=== PATIENT | female | born 1990 | race Hispanic/Latino ===

== ENCOUNTER 2020-11-11 19:26 | Emergency (ER) | payer OTHER ==
[2020-11-11 19:56] LABS: APPEARANCE,URINE CLOUDY (CLEAR); BILIRUBIN,URINE NEGATIVE (NEGATIVE); COLOR,URINE YELLOW (YELLOW); GLUCOSE, URINE (UA) NEGATIVE (NEGATIVE); KETONES,URINE NEGATIVE (NEGATIVE); LEUKOCYTE ESTERASE ,URINE NEGATIVE (NEGATIVE); NITRATE,URINE POSITIVE (NEGATIVE); OCCULT BLOOD,URINE LARGE (NEGATIVE); PROTEIN,URINE TRACE mg/dL (NEGATIVE)
[2020-11-11 20:02] LABS: RBC,URINE 51-100 /HPF (0-1)
[2020-11-11 20:03] LABS: BACTERIA,URINE Few /HPF (None Seen); SQUAMOUS EPITHELIAL CELL,UR Few /HPF (0-2)
[2020-11-11 20:47] LABS: BASOPHILS % (AUTO) 0.5 % (0.0-5.0); EOSINOPHILS % (AUTO) 0.2 % (0.0-8.0); HEMATOCRIT 35.8 % (36-48); LYMPHOCYTES % (AUTO) 22.2 % (21.0-51.0); MEAN CORPUSCULAR HEMOGLOBIN 28.8 pg (27.0-33.0); MEAN CORPUSCULAR HGB CONC 33.8 g/dL (32.0-36.0); MEAN CORPUSCULAR VOLUME 85.2 fL (79-99); MONOCYTES % (AUTO) 8.3 % (3.0-13.0); NEUTROPHILS % (AUTO) 68.5 % (40.0-77.0); PLATELET COUNT (AUTO) 343 K/uL (130-400); RED CELL DISTRIBUTION WIDTH 13.5 % (11.0-15.5); WHITE BLOOD COUNT (AUTO) 8.9 K/uL (4.8-10.8)
[2020-11-11 20:56] LABS: POTASSIUM 3.4 mmol/L (3.5-5.1)
[2020-11-11 21:15] LABS: BILIRUBIN,TOTAL 0.3 mg/dL (0.2-1.0); TOTAL PROTEIN, SERUM 8.3 g/dL (6.0-8.3)
== END 2020-11-11 22:19 | disposition home or self-care (01) ==
LOC: EDH 19:26
DX: O03.80 Unspecified complication following complete or unspecified spontaneous abortion (principal)
CPT/HCPCS: 36415; 80053; 81001; 81025; 84702; 85025; 87077; 87088; 87186

== ENCOUNTER → 2023-10-01 | Outpatient (CLI) | payer MEDICAID ==
[~2023-10-01] VITALS: Ht 172.7 cm; Wt 81.3 kg
[~2023-10-01] MED LIST: MVI PO
[2023-10-01 12:15] VITALS: BP 119/73; PULSE 69; RESP 18
[2023-10-01 12:17] LABS: BASOPHILS # (AUTO) 0.04 K/uL (0.00-0.20); BASOPHILS % (AUTO) 0.6 % (0.0-5.0); EOSINOPHILS # (AUTO) 0.02 K/uL (0.00-0.70); EOSINOPHILS % (AUTO) 0.3 % (0.0-8.0); HEMATOCRIT 37.5 % (36-48); IMMATURE GRANULOCYTE ABSOLUTE 0.01 K/uL (0-1); LYMPHOCYTES # (AUTO) 2.2 K/uL (1.0-4.8); LYMPHOCYTES % (AUTO) 34.2 % (21.0-51.0); MEAN CORPUSCULAR HEMOGLOBIN 26.8 pg (27.0-33.0); MEAN CORPUSCULAR VOLUME 83.9 fL (79-99); MONOCYTES # (AUTO) 0.4 K/uL (0.1-1.0); MONOCYTES % (AUTO) 6.1 % (3.0-13.0); NEUTROPHILS # (AUTO) 3.7 K/uL (1.8-7.7); NEUTROPHILS % (AUTO) 58.6 % (40.0-77.0); PLATELET COUNT (AUTO) 206 K/uL (130-400); RED BLOOD CELL COUNT(AUTO) 4.47 MIL/uL (4.00-5.50); RED CELL DISTRIBUTION WIDTH 14.1 % (11.0-15.5); WHITE BLOOD COUNT (AUTO) 6.3 K/uL (4.8-10.8)
[2023-10-01 12:38] LABS: INR <= 0.93 (0.85-1.15); PROTHROMBIN TIME 10.3 SEC (9.6-11.6)
[2023-10-01 12:41] LABS: CREATININE 0.8 mg/dL (0.5-1.0); POTASSIUM 3.6 mmol/L (3.5-5.1)
== END | disposition home or self-care (01) ==
LOC: DAH 10:00 → EDSTATUS 10-02 08:50
PROVIDERS: ATTEND Surgery
DX: K64.4 Residual hemorrhoidal skin tags (principal); Z79.01 Long term (current) use of anticoagulants; Z53.8 Procedure and treatment not carried out for other reasons
CPT/HCPCS: 80048; 84703; 85025; 85610; 85730; 36415; 93005; A6260

== ENCOUNTER 2024-03-19 06:13 | Day surgery (SDC) | payer MEDICAID ==
[2024-03-17 11:48] LABS: BASOPHILS # (AUTO) 0.03 K/uL (0.00-0.20); BASOPHILS % (AUTO) 0.5 % (0.0-5.0); EOSINOPHILS # (AUTO) 0.01 K/uL (0.00-0.70); EOSINOPHILS % (AUTO) 0.2 % (0.0-8.0); IMMATURE GRANULOCYTE ABSOLUTE 0.04 K/uL (0-1); LYMPHOCYTES # (AUTO) 2.2 K/uL (1.0-4.8); MEAN CORPUSCULAR HEMOGLOBIN 29.4 pg (27.0-33.0); MEAN CORPUSCULAR HGB CONC 33.3 g/dL (32.0-36.0); MEAN CORPUSCULAR VOLUME 88.2 fL (79-99); MONOCYTES # (AUTO) 0.5 K/uL (0.1-1.0); MONOCYTES % (AUTO) 8.1 % (3.0-13.0); NEUTROPHILS # (AUTO) 3.7 K/uL (1.8-7.7); NEUTROPHILS % (AUTO) 56.6 % (40.0-77.0); PLATELET COUNT (AUTO) 322 K/uL (130-400); RED BLOOD CELL COUNT(AUTO) 4.42 MIL/uL (4.00-5.50); RED CELL DISTRIBUTION WIDTH 13.6 % (11.0-15.5); WHITE BLOOD COUNT (AUTO) 6.6 K/uL (4.8-10.8)
[2024-03-17 11:50] VITALS: BP 137/81; PULSE 68; RESP 15; TEMP 98.2
[2024-03-17 11:58] LABS: INR 0.96 (0.85-1.15); PROTHROMBIN TIME 10.4 SEC (9.6-11.6)
[2024-03-17 11:59] LABS: PARTIAL THROMBOPLASTIN TIME 27.2 SEC (26.3-35.5)
[2024-03-17 12:03] LABS: ALBUMIN 4.2 g/dL (3.5-5.0); BILIRUBIN,TOTAL 0.7 mg/dL (0.2-1.0); CREATININE 0.9 mg/dL (0.5-1.0); POTASSIUM 3.2 mmol/L (3.5-5.1); TOTAL PROTEIN, SERUM 8.5 g/dL (6.0-8.3)
[~2024-03-19] VITALS: Ht 172.7 cm; Wt 81.6 kg
[2024-03-19] VITALS (16 sets, daily range): BP systolic 96–140; BP diastolic 42–84; PULSE 54–78; RESP 12–19; TEMP 97.1–97.9
[2024-03-19] MEDS ORDERED: acetaMINOPHEN 1,000 MG/100 ML VIAL IV ONE (07:02)
[2024-03-19] MEDS ORDERED: FAMOTIDINE 20MG VIAL IV ONE (07:02)
[2024-03-19] MEDS ORDERED: LIDOCAINE PF 100MG/5ML (2%) SYRINGE 5ML ONE (07:09)
[2024-03-19] MEDS ORDERED: rocuRONium bROMide 10MG/1ML 5ML VL ONE (07:09)
[2024-03-19] MEDS ORDERED: proPOFol 10 MG/ML 20ML VIAL IV ONE (07:09)
[2024-03-19] MEDS ORDERED: FENTanyl CITRate PF 50 MCG/1 ML 2ML VIAL ONE (07:09)
[2024-03-19] MEDS: ceFAZolin SODIUM 1 GM VIAL ONE (07:59)
[2024-03-19] MEDS: LACTATED RINGERS 1000ML 1,000 ML IV ONE (07:59)
[2024-03-19] MEDS ORDERED: dexaMETHasone SOD PHOSPHATE 10MG/ML 1ML VIAL ONE (08:30)
[2024-03-19] MEDS ORDERED: ondanSETRON 4MG INJ ONE (08:30)
[2024-03-19] MEDS: LIDOCAINE HCL 1% 10 ML VIAL ONE (08:50)
[2024-03-19] MEDS: EPINEPHrine PF 1MG (1:1,000) 1 MG/ML AMP ONE (08:50)
[2024-03-19] MEDS: LIDOCAINE HCL 1% 20 ML VIAL ONE (08:50)
[2024-03-19] MEDS: BUPIvacaine/PF 0.5% 30ML VIAL ONE (08:50)
[2024-03-19] MEDS ORDERED: ketOROlac 30MG VIAL (30MG/ML) ONE (08:52)
[2024-03-19] MEDS ORDERED: NEOSTIGMINE METHYLSULFATE 1MG/ML IV ONE (08:53)
[2024-03-19] MEDS ORDERED: GLYCOPYRROLATE 0.2 MG/ML 5 ML VIAL ONE (08:53)
[2024-03-19] MEDS: MEPERIDINE-PF 25 MG/ML SYG ONE (09:29)
[2024-03-19] MEDS: ondanSETRON 4MG INJ ONE (09:45)
== END 2024-03-19 10:30 | disposition home or self-care (01) ==
LOC: DAH 06:13
PROVIDERS: ATTEND Surgery
DX: K64.4 Residual hemorrhoidal skin tags (principal); K60.2 Anal fissure, unspecified; Z90.721 Acquired absence of ovaries, unilateral; Z80.3 Family history of malignant neoplasm of breast; Z79.01 Long term (current) use of anticoagulants; Z79.899 Other long term (current) drug therapy
CPT/HCPCS: 80053; 84703; 85025; 85610; 85730; 36415; 93005; 46910; 88304; A6260; A4663; J7120 ×2; A4351; A4606; S0028; J3010; J0690; J1100; J3490 ×4; J2003; J0171; J2405 ×2; J1885; J2710; J0665; J2175; A4649; A4215; A4223; A4213; A4222; A4221; A4600; J2704